=== PATIENT | female | born 1990 | race Two or more races ===

== ENCOUNTER 2021-10-27 09:15 | Emergency (ER) | payer MEDICAID ==
[~2021-10-27] VITALS: Ht 157.5 cm; Wt 74.8 kg
[2021-10-27 09:36] VITALS: BP 118/85
[2021-10-27] MEDS ORDERED: cefTRIAXone SOD 1,000 MG VL IM ONE (09:45)
[2021-10-27] MEDS ORDERED: IBUPROFEN 800 MG TAB PO ONE (09:45)
[2021-10-27] MEDS ORDERED: IBUP800T27 PO (09:50)
[2021-10-27] MEDS ORDERED: CEPH-509 PO (09:50)
[2021-10-27] MEDS ORDERED: LIDOCAINE 1% (LOCAL ANESTH.) PF 5ml SDV ONE (09:59)
[2021-10-27] MEDS ORDERED: LIDOCAINE 1% HCL (LOCAL ANESTH.) INJ 20ML MDV IJ ONE (10:00)
== END 2021-10-27 10:32 | disposition home or self-care (01) ==
LOC: ER 09:15
DX: L02.32 Furuncle of buttock (principal); Z79.1 Long term (current) use of non-steroidal anti-inflammatories (NSAID); Z79.899 Other long term (current) drug therapy
CPT/HCPCS: 96372; 99283; J0696